=== PATIENT | female | born 1950 | race Caucasian/White ===

== ENCOUNTER 2016-11-25 18:26 | Emergency (ER) | payer BC ==
[~2016-11-25] VITALS: Ht 170.2 cm; Wt 114.2 kg
[~2016-11-25 18:26] MED LIST: ASPIR-LOW81 MG PO; Anusol HC,Anucort-HC PR; Anusol HC,Proctozone PR; Ascorbic Acid,Ester- PO; CLARITIN10 M3 PO; COLACE100 MG PO; CYANOCOBALAM1000 MCG PO; Colace PO; Diflucan PO; Dulcolax PR; FOLIC ACID1 MG PO; Folvite PO; HYDROCHLOROTHIA25 MG PO; HYDROCHLOROTHIA50 MG PO; JANUVIA25 M1 PO; LISINOPRIL40 MG PO; LOPRESSOR25 MG PO; LOPRESSOR50 MG PO; Lopressor PO; METFORMIN HCL500 MG PO; MYCOLOG TP; Miralax, Glycolax PO; NYSTATIN15 GM TP; Nucynta PO; OMEGA-31000 M1 PO; PANTOPRAZOLE SO40 MG PO; PROBIOTIC1 EAC1 PO; PROBIOTIC1 EAC2 PO; PROMETHAZINE HC25 M1 PO; Phenergan PO; Protonix PO; REZYST IM TABL150 MG PO; ROBITUSSIN NIG118 ML PO; SENOKOT S,PE1 TABLET PO; Senokot S,Pericolace PO; Silvadene,SSD,Therma TP; TAMIFLU30 MG PO; TRAMADOL HCL50 MG PO; TYLENOL REGULA325 MG PO; Theragran PO; VALIUM2 MG PO; VITAMIN D250000 UNIT PO; VITAMIN D5000 INTUN PO; Valium PO; Zeasorb Antifungal T TP; Zestril,Prinivil PO
[2016-11-25 19:49] LABS: EOSINOPHIL (%) 4.3 % (0-5); EOSINOPHIL COUNT 0.4 K/uL (0-0.3); HEMATOCRIT 40.4 % (36.0-46.0); IMMATURE GRANULOCYTE (%) 0.3 % (0.0-0.7); INSTRUMENT ABS NEUTROPHIL CT 4.6 K/uL; LYMPHOCYTE COUNT 2.8 K/uL (1.0-2.8); MCH 32.9 PG (29.0-34.0); MCHC 35.9 G/DL (30.0-36.0); MCV 91.6 FL (83-99); MEAN PLAT.VOLUME 10.8 uM^3 (9.5-12.4); MONOCYTE (%) 8.2 % (3-12); MONOCYTE COUNT 0.7 K/uL (0-0.8); NEUTROPHIL (%) 53.8 % (45-76); NEUTROPHIL COUNT 4.6 K/uL (1.8-6.4); PLATELET COUNT 217 K/uL (156-360); RBC DIS.WIDTH-CV 12.5 % (11.8-14.6); RBC DIS.WIDTH-SD 41.4 % (39-53); RED BLOOD COUNT 4.41 M/uL (3.80-5.20); WHITE BLOOD COUNT 8.6 K/uL (4.1-10.2)
[2016-11-25 19:59] LABS: CHLORIDE 105 mEq/L (99-109); POTASSIUM 3.3 mEq/L (3.7-5.4); SODIUM 142 mEq/L (136-147)
[2016-11-25 20:01] LABS: GLUCOSE 166 mg/dL (70-99)
[2016-11-25 20:02] LABS: ANION GAP 10 MEQ/L (2-14)
[2016-11-25 20:03] LABS: TOTAL BILIRUBIN 1.6 mg/dL (0.0-1.0)
[2016-11-25 20:05] LABS: ALKALINE PHOSPHATASE 87 IU/L (3-129); GFR ESTIMATE (CALCULATED) > 59 mL/min/
[2016-11-25 20:06] LABS: UREA NITROGEN (BUN) 18 mg/dL (9-23)
[2016-11-25 20:13] LABS: TROP-I INTERPRETATION NEGATIVE; TROPONIN-I < 0.01 ng/mL (0.0-0.30)
[2016-11-25 21:35] LABS: ADD MIUA? YES; BILIRUBIN NEGATIVE; BLOOD NEGATIVE; COLOR YELLOW ((YELLOW)); GLUCOSE (STRIP) NEGATIVE; KETONES NEGATIVE; LEUKOCYTES NEGATIVE; NITRITE NEGATIVE; PROTEIN (STRIP) 100; SPECIFIC GRAVITY 1.024 (1.000-1.030); UROBILINOGEN 0.2 MG/DL (0.2-1.0)
[2016-11-25 21:37] LABS: BACTERIA NONE SEEN /HPF; EPITHELIAL CELLS 1+ /HPF; MUCUS TRACE /LPF; RED BLOOD CELLS 0-5 /HPF (0-5); UCUL ADDED? NO; WHITE BLOOD CELLS 0-5 /HPF (0-5)
[2016-11-25] MEDS ORDERED: HYDRALAZINE HCL50 MG PO (23:08)
[2016-11-25] MEDS ORDERED: CLONIDINE HCL0.1 MG PO (23:08)
[2016-11-25 23:38] VITALS: BP 168/92
== END 2016-11-25 23:39 | disposition home or self-care (01) ==
LOC: EME 18:26
PROVIDERS: Emergency Medicine
DX: I10 Essential (primary) hypertension (principal); R51 Headache; K21.9 Gastro-esophageal reflux disease without esophagitis; J44.9 Chronic obstructive pulmonary disease, unspecified; E11.9 Type 2 diabetes mellitus without complications; Z79.82 Long term (current) use of aspirin; Z87.891 Personal history of nicotine dependence; Z88.8 Allergy status to other drugs, medicaments and biological substances
CPT/HCPCS: 70450; 80053; 81003; 84484; 85025; 93005; 99281; 99284